=== PATIENT | female | born 1980 | race Caucasian/White ===

== ENCOUNTER 2023-05-26 10:57 | Outpatient (REF) | payer OTHER, SELFPAY ==
--- NOTE | ~2023-05-26 | US_ITS ---
EXAMINATION: US SOFT TISSUE HEAD/NECK CLINICAL INFORMATION: Lump left neck. COMPARISON: None available. TECHNIQUE: Linear transducer lambert-scale and color Doppler examination with attention to the region of concern in the left neck and shoulder. FINDINGS: In the area of palpable concern in the left neck are multiple abnormal enlarged lymph nodes measuring up to 1.6 x 1.7 x 1.4 cm. US/US soft tiss head and/or neck IMPRESSION: In the area of palpable concern in the left neck are multiple abnormal enlarged lymph nodes measuring up to 1.4 cm in short axis, raising the suspicion for underlying malignancy. Recommend correlation with tissue sampling. As this exam was dictated after hours, a [place] [employer] administrator will contact the ordering provider with findings and recommendations at the start of the next business day.
== END 2023-05-26 10:58 | disposition home or self-care (01) ==
LOC: HO.UMASIMG 10:57
PROVIDERS: PCP Family Medicine; Visit Provider Family Medicine
DX: R22.9 Localized swelling, mass and lump, unspecified (principal)
CPT/HCPCS: 76536